=== PATIENT | female | born 1995 | race Caucasian/White ===

== ENCOUNTER 2016-11-09 15:49 | Outpatient (CLI) | payer OTHER | END 2016-11-09 15:50 | disposition home or self-care (01) | LOC: WFO 15:49 | DX: Z53.9 Procedure and treatment not carried out, unspecified reason (principal) ==

== ENCOUNTER 2016-11-25 11:43 | Outpatient (CLI) | payer OTHER ==
[2016-11-25 12:04] VITALS: BP 127/70
--- NOTE | 2016-11-25 14:09 | PROVIDER PROGRESS NOTE ---
Labor Progress Note - Uterine Monitoring Uterine Monitoring Mode: positive: External toco Contraction Frequency (min/apart): 2-5 Contraction Intensity: positive: Mild Uterine Resting Tone: positive: Soft - Monitoring Monitor Mode: positive: External ultrasound Heart Rate Baseline: 135 Heart Rate Variability: positive: Moderate (6-25 bmp) Accelerations: positive: Present, 15x15 Decelerations: positive: None Strip Review: positive: Category I - Vaginal Exam Dilation (in cm): FT Effacement (%): 60 Station: -1 Cervical Position: Midposition - Labor Progress Note Labor Progress Note/Additional Text: S: Susana presents as a diverted patient from [facility] accompanied by her w / a complaint of possible ROM. She reports that she noticed increased vaginal dampness overnight around 2330. She went to the bathroom & then lay down w/ an intent to reassess vaginal d/c x1 hour, but she fell asleep. When she awoke this morning, she was having mild irregular uterine contractions & reported again some increased vaginal wetness. She describes mucoid yellow vaginal d/c the previous day & she reports coitus yesterday prior to thinking her water may have broken. None since & no vaginal penetration or bathing since. Her baby has been moving well. She reports her pain is 4/10 w/ the uterine contractions. Denies vaginal bleeding. No big gushes. O: AAOx3, NAD WA gravid female VS: t: 36.8C, HR 105bpm, RR 18, BP127/72 EFM: BL 135bpm, + accels, no decels, moderate variability TOCO: UCs irregular q2-5 min x40 seconds, palpably mild SSE: negative pool/valsalva/nitrazine/fern SVE: FT/60/-1/anterior/medium A: 21 y/o @ 37w3d by LMP consistent w/ first trimester US w/ irregular but frequent uterine contractions, no LOF, GBS negative, NST cat I & reactive, not in labor P: 1. Reviewed physiology of labor, early labor, progress 2. Reviewed recommendations for diet/hydration 3. Reviewed warning s/sx, s/s LOF, FKC, labor s/sx 4. Pt to keep RTPN visit w/ [facility] next week, intends to transfer care, which she will discuss there & be seen for transfer next week, desires CNM care 5. Pt has emergency contact information & will call w/ any questions or concerns PRN
== END 2016-11-25 13:40 | disposition home or self-care (01) ==
LOC: FBP 11:43 → WFO 11:43
PROVIDERS: ATTEND Registered Nurse
DX: O47.1 False labor at or after 37 completed weeks of gestation (principal); O99.89 Other specified diseases and conditions complicating pregnancy, childbirth and the puerperium; N89.8 Other specified noninflammatory disorders of vagina; Z3A.37 37 weeks gestation of pregnancy
CPT/HCPCS: 99213

== ENCOUNTER 2016-11-29 12:26 | Outpatient (CLI) | payer OTHER ==
[2016-11-29 13:07] LABS: HCT - HEMATOCRIT 38.3 % (37.0-47.0); HGB - HEMOGLOBIN 12.7 g/dL (12.0-16.0); MEAN CORPUSCULAR HEMOGLOBIN 29.5 pg (27.0-31.0); MEAN CORPUSCULAR HGB CONC 33.2 g/dL (32.0-36.0); MEAN CORPUSCULAR VOLUME 88.8 fL (81.0-99.0); MEAN PLATELET VOLUME 10.4 fL (7.9-10.8); RED BLOOD COUNT 4.32 10^6/uL (4.20-5.40); RED CELL DISTRIBUTION WIDTH 14.2 % (12.0-15.0); WHITE BLOOD COUNT 10.5 x10^3/uL (4.8-10.8)
[2016-11-29 13:20] LABS: ALBUMIN/GLOBULIN RATIO 0.8 (1.0-2.2); BILIRUBIN,TOTAL 0.2 mg/dL (0.2-1.0); CALCIUM 9.8 mg/dL (8.5-10.3); CREATININE 0.5 mg/dL (0.4-1.0); POTASSIUM 4.3 mmol/L (3.5-5.0); TOTAL PROTEIN 6.4 g/dL (6.7-8.2)
== END 2016-11-29 12:27 | disposition home or self-care (01) ==
LOC: LAB 12:26
PROVIDERS: ATTEND Registered Nurse
DX: O13.3 Gestational [pregnancy-induced] hypertension without significant proteinuria, third trimester (principal)
CPT/HCPCS: 36415; 80053; 82570; 84156

== ENCOUNTER 2016-12-10 16:37 | Outpatient (CLI) | payer OTHER ==
[2016-12-10 17:01] LABS: HCT - HEMATOCRIT 35.8 % (37.0-47.0); HGB - HEMOGLOBIN 11.8 g/dL (12.0-16.0); MEAN CORPUSCULAR HEMOGLOBIN 29.3 pg (27.0-31.0); MEAN PLATELET VOLUME 8.4 fL (7.9-10.8); RED BLOOD COUNT 4.02 10^6/uL (4.20-5.40); RED CELL DISTRIBUTION WIDTH 14.2 % (12.0-15.0); WHITE BLOOD COUNT 15.9 x10^3/uL (4.8-10.8)
== END 2016-12-10 16:38 | disposition home or self-care (01) ==
LOC: LAB 16:37
PROVIDERS: ATTEND Obstetrics & Gynecology
DX: Z39.2 Encounter for routine postpartum follow-up (principal)
CPT/HCPCS: 36415

== ENCOUNTER 2016-12-24 08:00 | Outpatient (CLI) | payer OTHER | END 2016-12-24 08:01 | disposition home or self-care (01) | LOC: LAB.R 08:00 | PROVIDERS: ATTEND Obstetrics & Gynecology | DX: Z11.3 Encounter for screening for infections with a predominantly sexual mode of transmission (principal) | CPT/HCPCS: 87529 ==

== ENCOUNTER 2016-12-24 11:56 | Outpatient (CLI) | payer OTHER ==
[2016-12-24 12:29] LABS: BASOPHILS # (AUTO) 0.1 10^3/uL (0.0-0.1); EOSINOPHILS # (AUTO) 0.3 10^3/uL (0.0-0.7); EOSINOPHILS % (AUTO) 3.7 %; LYMPHOCYTES # (AUTO) 2.3 10^3/uL (1.5-3.5); MEAN CORPUSCULAR HEMOGLOBIN 28.5 pg (27.0-31.0); MEAN CORPUSCULAR HGB CONC 32.5 g/dL (32.0-36.0); MEAN CORPUSCULAR VOLUME 87.6 fL (81.0-99.0); MEAN PLATELET VOLUME 9.5 fL (7.9-10.8); MONOCYTES # (AUTO) 0.5 10^3/uL (0.0-1.0); MONOCYTES % (AUTO) 6.9 %; NEUTROPHILS # (AUTO) 4.2 10^3/uL (1.5-6.6); NEUTROPHILS % (AUTO) 57.4 %; RED BLOOD COUNT 4.56 10^6/uL (4.20-5.40); RED CELL DISTRIBUTION WIDTH 14.2 % (12.0-15.0); UNCORRECTED WHITE BLOOD COUNT 7.4 x10^3/uL; WHITE BLOOD COUNT 7.4 x10^3/uL (4.8-10.8)
== END 2016-12-24 11:57 | disposition home or self-care (01) ==
LOC: LAB 11:56
PROVIDERS: ATTEND Obstetrics & Gynecology
DX: Z11.3 Encounter for screening for infections with a predominantly sexual mode of transmission (principal)
CPT/HCPCS: 36415; 85025; 86695; 86696

== ENCOUNTER 2017-06-07 13:28 | Emergency (ER) | payer OTHER ==
[2017-06-07] MEDS ORDERED: ONDANSETRON 4 MG/2 ML VIAL IVP STA (13:50)
[2017-06-07] MEDS ORDERED: ACETAMINOPHEN 1,000 MG/100 ML 100 ML IV STA (13:50)
[2017-06-07 13:55] LABS: BILIRUBIN,URINE NEGATIVE (NEGATIVE); GLUCOSE, URINE (UA) NEGATIVE (NEGATIVE); KETONES,URINE (UA) NEGATIVE (NEGATIVE); LEUKOCYTE ESTERASE, URINE NEGATIVE (NEGATIVE); NITRITE,URINE NEGATIVE (NEGATIVE); OCCULT BLOOD,URINE LARGE (NEGATIVE); PROTEIN,URINE NEGATIVE (NEGATIVE); UROBILINOGEN,URINE 0.2 (NORMAL) E.U./dL (NORMAL)
[2017-06-07 13:56] LABS: CLARITY,URINE SL. CLOUDY (CLEAR)
[2017-06-07 14:01] LABS: RBC,URINE TNTC /HPF (0-5); SQUAMOUS EPITHELIAL CELL,UR FEW Squamous (<= Few)
[2017-06-07 14:02] LABS: BACTERIA,URINE Rare /HPF (None Seen)
[2017-06-07 14:04] LABS: BASOPHILS # (AUTO) 0.1 10^3/uL (0.0-0.1); BASOPHILS % (AUTO) 0.6 %; EOSINOPHILS # (AUTO) 0.1 10^3/uL (0.0-0.7); EOSINOPHILS % (AUTO) 1.4 %; HGB - HEMOGLOBIN 13.7 g/dL (12.0-16.0); LYMPHOCYTES # (AUTO) 2.2 10^3/uL (1.5-3.5); LYMPHOCYTES % (AUTO) 23.2 %; MEAN CORPUSCULAR HEMOGLOBIN 28.6 pg (27.0-31.0); MEAN CORPUSCULAR HGB CONC 33.6 g/dL (32.0-36.0); MEAN CORPUSCULAR VOLUME 85.2 fL (81.0-99.0); MEAN PLATELET VOLUME 10.5 fL (7.9-10.8); MONOCYTES # (AUTO) 0.7 10^3/uL (0.0-1.0); MONOCYTES % (AUTO) 7.9 %; NEUTROPHILS # (AUTO) 6.2 10^3/uL (1.5-6.6); NEUTROPHILS % (AUTO) 66.9 %; PLT - PLATELET COUNT 182 10^3/uL (130-450); RED CELL DISTRIBUTION WIDTH 14.9 % (12.0-15.0); WHITE BLOOD COUNT 9.3 x10^3/uL (4.8-10.8)
[2017-06-07 14:17] LABS: ALBUMIN 4.4 g/dL (3.2-5.5); ALBUMIN/GLOBULIN RATIO 1.6 (1.0-2.2); BILIRUBIN,TOTAL 0.8 mg/dL (0.2-1.0); CALCIUM 9.3 mg/dL (8.5-10.3); CREATININE 0.7 mg/dL (0.4-1.0); TOTAL PROTEIN 7.2 g/dL (6.7-8.2)
[2017-06-07 14:26] LABS: HCG UR QUAL NEGATIVE
[2017-06-07 15:48] VITALS: BP 152/102
--- NOTE | 2017-06-07 16:21 | ED Physician Documentation ---
PD HPI ABD PAIN - Stated complaint Stated Complaint: R SIDE ABD PX - Chief complaint Chief Complaint: Abd Pain - History obtained from History obtained from: Patient - History of Present Illness Timing - onset: How many hours ago (1) Timing - details: Still present Quality: Sharp Location: RLQ Associated symptoms: Nausea. No: Vomiting Similar symptoms before: Has not had sx before - Treatment prior to arrival Treatment prior to arrival: Ibuprofen one hour prior to arrival. - Additional information Additional information: The patient is a 21-year-old female who presents with right lower quadrant abdominal pain that started about one hour prior to arrival. She had mild cramping pain this morning, but the sharp pain in her right lower quadrant started one hour ago. She reports associated nausea, but denies vomiting. She denies fever, dysuria, or diarrhea. Her last menstrual period started 2 days ago. She took ibuprofen one hour ago. She last ate about 5 hours ago. Surgical history: Status post . Review of Systems Constitutional: denies: Fever Nose: denies: Congestion Throat: denies: Sore throat Cardiac: denies: Chest pain / pressure Respiratory: denies: Dyspnea, Cough GI: reports: Abdominal Pain, Nausea. denies: Vomiting, Diarrhea : reports: LMP (Started 2 days ago.). denies: Dysuria Skin: denies: Rash Musculoskeletal: denies: Back pain Neurologic: denies: Headache PD PAST MEDICAL HISTORY - Past Medical History Cardiovascular: None Respiratory: None Neuro: None Endocrine/Autoimmune: None GI: None SPA CONSULTANT: None : None HEENT: None Psych: None Musculoskeletal: None Derm: None - Past Surgical History Past Surgical History: Yes General: Other - Present Medications Home Medications: Ambulatory Orders Medication Instructions Recorded Confirmed HYDROcod/ACETAM 5/325 [[place] 5/325] 1 ea PO Q6H PRN #10 tablet 06/07/17 Promethazine [Phenergan] 25 - 50 mg PO Q6H PRN #10 tab 06/07/17 - Allergies Allergies/Adverse Reactions: Allergies Allergy/AdvReac Type Severity Reaction Status Date / Time Penicillins AdvReac Hives Verified 06/07/17 13:35 - Social History Does the pt smoke?: No Smoking Status: Never smoker Does the pt drink ETOH?: No Does the pt have substance abuse?: No - Immunizations Immunizations are current?: Yes - POLST Patient has POLST: No PD ED PE NORMAL - Vitals Vital signs reviewed: Yes (normal) - General General: Alert and oriented X 3, Well developed/nourished - HEENT HEENT: Atraumatic, Moist mucous membranes, Pharynx benign - Neck Neck: Supple, no meningeal sign, No adenopathy - Cardiac Cardiac: RRR, No murmur - Respiratory Respiratory: No respiratory distress, Clear bilaterally - Abdomen Abdomen: Normal bowel sounds, Soft, Non distended, No organomegaly, Other ( There is minimal tenderness to palpation in the right lower quadrant, without rebound tenderness or guarding.) - Back Back: No CVA TTP - Derm Derm: No rash - Neuro Neuro: Alert and oriented X 3, No motor deficit Results - Vitals Vitals: Oxygen O2 Source Room air - Labs Labs: Laboratory Tests 06/07/17 06/07/17 06/07/17 13:00 13:00 13:58 WBC 9.3 RBC 4.80 Hgb 13.7 Hct 40.9 MCV 85.2 MCH 28.6 MCHC 33.6 RDW 14.9 Plt Count 182 MPV 10.5 Neut # 6.2 Lymph # 2.2 [place] # 0.7 Eos # 0.1 Baso # 0.1 Absolute Nucleated RBC 0.00 Nucleated RBC % 0.0 Sodium Potassium Chloride Carbon Dioxide Anion Gap BUN Creatinine Estimated GFR (MDRD) Glucose Calcium Total Bilirubin AST ALT Alkaline Phosphatase Total Protein Albumin Globulin Albumin/Globulin Ratio Lipase Urine Color YELLOW Urine Clarity SL. CLOUDY Urine pH 6.0 Ur Specific [place] 1.025 1.025 Urine Protein NEGATIVE Urine Glucose (UA) NEGATIVE Urine Ketones NEGATIVE Urine Occult Blood LARGE H Urine Nitrite NEGATIVE Urine Bilirubin NEGATIVE Urine Urobilinogen 0.2 (NORMAL) Ur Leukocyte Esterase NEGATIVE Urine RBC TNTC H Urine WBC 0-3 Ur Squamous Epith Cells FEW Squamous Urine Bacteria Rare Ur Microscopic Review INDICATED Urine Culture Comments NOT INDICATED Urine HCG, Qual NEGATIVE 06/07/17 13:58 WBC RBC Hgb Hct MCV MCH MCHC RDW Plt Count MPV Neut # Lymph # [place] # Eos # Baso # Absolute Nucleated RBC Nucleated RBC % Sodium 136 Potassium 3.9 Chloride 105 Carbon Dioxide 25 Anion Gap 6.0 BUN 12 Creatinine 0.7 Estimated GFR (MDRD) 107 Glucose 90 Calcium 9.3 Total Bilirubin 0.8 AST 17 ALT 16 Alkaline Phosphatase 64 Total Protein 7.2 Albumin 4.4 Globulin 2.8 Albumin/Globulin Ratio 1.6 Lipase 17 L Urine Color Urine Clarity Urine pH Ur Specific [place] Urine Protein Urine Glucose (UA) Urine Ketones Urine Occult Blood Urine Nitrite Urine Bilirubin Urine Urobilinogen Ur Leukocyte Esterase Urine RBC Urine WBC Ur Squamous Epith Cells Urine Bacteria Ur Microscopic Review Urine Culture Comments Urine HCG, Qual - Rads (name of study) U/S RLQ Radiology: Prelim report reviewed, EMP read contemporaneously, See rad report ( Nonvisualization of appendix. No secondary findings of acute appendicitis.) Pelvic U/S Radiology: Prelim report reviewed, EMP read contemporaneously, See rad report ( IUD in place. Small amount of free fluid. Otherwise normal.) PD MEDICAL DECISION MAKING - ED course Complexity details: reviewed results, re-evaluated patient, considered differential, d/w patient ED course: The underlying cause of the patient's abdominal pain is uncertain at this time. CBC and chemistry panel are normal. Urinalysis reveals hematuria, consistent with menstrual period, but with no pyuria. Ultrasound of the abdomen and pelvis is negative, with no evidence of appendicitis, ovarian cyst, or torsion. Treatment in the emergency department included administration of Zofran 4 mg IV and acetaminophen 1 g IV. Later ketorolac 30 mg is administered IV. This markedly improved the patient's pain. On reexamination her abdomen is totally benign. The possibility of renal colic is considered. There was no stone detected on ultrasound, but that study would not necessarily detect ureteral stone. The patient is being discharged with prescription for Phenergan and for Vicodin , 10 tablets. I discussed with her and her family the results of her workup, and the possibility that this might be an early presentation of appendicitis that has not yet progressed to the point of revealing diagnostic evidence. I recommended repeat evaluation within 12-24 hours if her symptoms recur or persist, and advised sooner return if she develops worsening symptoms. Departure - Departure Disposition: 01 Home, Self Care Clinical Impression: Abdominal pain Qualifiers: Abdominal location: right lower quadrant Qualified Code(s): R10.31 - Right lower quadrant pain Condition: Stable Instructions: ED Abdominal Pain Unkn Cause Follow-Up: ASHLY REHMAN PA-C [Primary Care Provider] - Prescriptions: HYDROcod/ACETAM 5/325 [[place] 5/325] 1 ea PO Q6H PRN #10 tablet PRN Reason: Pain Promethazine [Phenergan] 25 - 50 mg PO Q6H PRN #10 tab PRN Reason: Nausea / Vomiting Comments: Drink plenty of fluids. You can use Phenergan as prescribed if needed for nausea. You can use ibuprofen, up to 800 mg 3 times daily for its anti-inflammatory effect. You can use Vicodin as prescribed if needed for pain. Follow up with your primary physician within 1 week. Call to schedule appointment. Return to the emergency department if you develop increasing pain or if not starting to improve within the next 12-24 hours. Discharge Date/Time: 06/07/17 17:03
--- NOTE | 2017-06-07 16:24 | Ultrasound Report ---
RIGHT LOWER QUADRANT ULTRASOUND: 06/07/2017 CLINICAL INDICATION: Pain. TECHNIQUE: Real-time scanning was performed with branch sales and service representative static images obtained. FINDINGS: Ultrasound of the right lower quadrant was performed. The appendix is not confidently visualized. No abnormal fluid collection or adenopathy is identified. IMPRESSION: NONVISUALIZATION OF THE APPENDIX, BUT NO SECONDARY FINDINGS OF ACUTE APPENDICITIS ARE APPRECIATED. TD: 06/07/2017 16:23
--- NOTE | 2017-06-07 16:27 | Ultrasound Report ---
PELVIC ULTRASOUND: 06/07/2017 CLINICAL INDICATION: Right-sided pain. TECHNIQUE: Transabdominal pelvic ultrasound performed for global evaluation. Transvaginal pelvic ultrasound performed for detailed evaluation. Real-time scanning performed and static images obtained. FINDINGS: The uterus is anteverted, measuring 7.8 x 5.7 x 4.8 cm. The endometrium measures 10 mm. An IUD is noted in the endometrial canal. The ovaries are normal, with the right measuring 2.8 x 1.6 x 1.2 cm, and the left measuring 2.6 x 1.9 x 1.8 cm. A small amount of free fluid is present in the cul-de-sac. IMPRESSION: SMALL AMOUNT OF FREE FLUID. IUD IN THE ENDOMETRIAL CANAL. NORMAL OVARIES. TD: 06/07/2017 16:26
[2017-06-07] MEDS ORDERED: KETOROLAC 60 MG/2 ML VIAL IVP STA (16:32)
== END 2017-06-07 17:03 | disposition home or self-care (01) ==
LOC: ED 13:28
DX: R10.31 Right lower quadrant pain (principal)
CPT/HCPCS: 36415; 76705; 76830; 76856; 80053; 81001; 81025; 83690; 85025; 96365; 96375; 99283; 99284; J0131; 81003; 87086

== ENCOUNTER 2017-06-13 08:05 | Outpatient (CLI) | payer OTHER ==
--- NOTE | 2017-06-13 18:48 | MRI Report ---
REVISED: REPORT ORIGINALLY SIGNED ON 06/13/2017@1848; ORDERS LINKED ON 2017 jll EXAM: BILATERAL CALF/TIBIA MRI WITHOUT CONTRAST EXAM DATE: 06/13/2017 10:11 AM. CLINICAL HISTORY: Pain in right and left leg. Bilateral tran pain for 3 weeks. Pain worse with running. COMPARISON: None. TECHNIQUE: Multiplanar, multisequence T1-weighted and fluid-sensitive sequences of the calf/tibia without contrast. Other: None. FINDINGS Bones: Edema is noted at the posterior aspect proximal medial left tibial plateau. Mild marrow edema left mid medial femoral condyle axial T2-weighted fat saturation sequence. There is mild marrow edema posterior aspect medial proximal tibia epiphysis right leg (image 4 series [id number]). Joint Spaces: Visualized portions of the ankle and knee joints are unremarkable. Tendons: Where visualized, the Achilles and plantaris tendons are intact. Musculature: No edema or fatty atrophy. Other: The subcutaneous tissues are unremarkable. IMPRESSION 1. Negative for tibia shaft stress injury. 2. Mild marrow edema or bone bruise posterior aspect medial left and right tibia epiphysis, which is greater on the left than the right. 3. Negative for soft tissue or bone signal abnormality medial aspect proximal to mid legs bilaterally at the level of the skin markers. [facility]CULOS[facility] Referring Provider Line: [phone] SITE ID: [id number]
== END 2017-06-13 08:06 | disposition home or self-care (01) ==
LOC: DI 08:05
PROVIDERS: ATTEND Physician Assistant Medical
DX: M79.662 Pain in left lower leg (principal); M79.661 Pain in right lower leg

== ENCOUNTER 2017-07-16 18:55 | Outpatient (CLI) | payer OTHER | END 2017-07-16 18:56 | disposition EMS.NT | LOC: EMS 18:55 | PROVIDERS: ATTEND Surgery | DX: N92.0 Excessive and frequent menstruation with regular cycle (principal) ==

== ENCOUNTER 2017-07-16 19:41 | Emergency (ER) | payer OTHER ==
--- NOTE | 2017-07-16 20:19 | ED Physician Documentation ---
PD HPI FEMALE - Stated complaint Stated Complaint: ABD CRAMPING - Chief complaint Chief Complaint: Abd Pain - History obtained from History obtained from: Patient - History of Present Illness Timing - onset: Today Timing - details: Gradual onset, Still present Associated symptoms: Pelvic pain, Vaginal bleeding Similar symptoms before: Has not had sx before Recently seen: Not recently seen - Additional information Additional information: Patient is a 21 year old female with no significant past medical history who is presenting to the emergency department for pelvic pain and vaginal bleeding. Patient states that she normally gets her period every month on the . Patient states that it started a few days late. Patient states that starting yesterday she has had severe pain with her vaginal bleeding. Review of Systems Constitutional: denies: Fever, Chills Eyes: reports: Reviewed and negative Ears: reports: Reviewed and negative Throat: reports: Reviewed and negative GI: reports: Abdominal Pain. denies: Nausea, Vomiting : reports: Vaginal bleeding. 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: None : None HEENT: None Psych: None Musculoskeletal: None Derm: None - Past Surgical History Past Surgical History: Yes General: Other /REGISTERED DENTAL HYGIENIST: section HEENT: Tonsil/Adenoidectomy - Present Medications Home Medications: Ambulatory Orders Medication Instructions Recorded Confirmed HYDROcod/ACETAM 5/325 [[place] 5/325] 1 ea PO Q6H PRN #10 tablet 06/07/17 Promethazine [Phenergan] 25 - 50 mg PO Q6H PRN #10 tab 06/07/17 - Allergies Allergies/Adverse Reactions: Allergies Allergy/AdvReac Type Severity Reaction Status Date / Time Penicillins AdvReac Hives Verified 07/16/17 19:47 - Social History Does the pt smoke?: No Smoking Status: Never smoker Does the pt drink ETOH?: No Does the pt have substance abuse?: No - Immunizations Immunizations are current?: Yes - POLST Patient has POLST: No PD ED PE NORMAL - Vitals Vital signs reviewed: Yes - General General: Alert and oriented X 3, Well developed/nourished - HEENT HEENT: Atraumatic, PERRL - Neck Neck: Supple, no meningeal sign - Cardiac Cardiac: RRR, No murmur - Respiratory Respiratory: No respiratory distress - Abdomen Abdomen: Soft, Non distended - Female Female : Deferred - Derm Derm: Normal color, Warm and dry - Extremities Extremities: No deformity - Neuro Neuro: Alert and oriented X 3 Eye Opening: Spontaneous Motor: Obeys Commands Verbal: Oriented GCS Score: 15 Results - Vitals Vitals: Vital Signs - 24 hr 07/16/17 07/16/17 19:42 22:00 Temperature 36.4 C L Heart Rate 73 60 Respiratory 16 16 Rate Blood Pressure 129/79 122/71 O2 Saturation 100 99 Oxygen O2 Source Room air - Labs Labs: Laboratory Tests 07/16/17 07/16/17 07/16/17 20:10 20:26 20:26 WBC 9.9 RBC 4.73 Hgb 13.3 Hct 40.9 MCV 86.6 MCH 28.0 MCHC 32.4 RDW 14.0 Plt Count 195 MPV 10.8 Neut # 7.0 H Lymph # 1.9 [place] # 0.8 Eos # 0.2 Baso # 0.1 Absolute Nucleated RBC 0.01 Nucleated RBC % 0.1 Sodium 139 Potassium 4.1 Chloride 103 Carbon Dioxide 28 Anion Gap 8.0 BUN 12 Creatinine 0.7 Estimated GFR (MDRD) 107 Glucose 92 Calcium 9.1 Total Bilirubin 0.6 AST 19 ALT 15 Alkaline Phosphatase 60 Total Protein 6.9 Albumin 3.9 Globulin 3.0 Albumin/Globulin Ratio 1.3 Lipase 23 HCG, Quant Urine Color RED/BLOODY Urine Clarity HAZY Urine pH 7.0 Ur Specific [place] 1.015 Urine Protein NEGATIVE Urine Glucose (UA) NEGATIVE Urine Ketones NEGATIVE Urine Occult Blood LARGE H Urine Nitrite NEGATIVE Urine Bilirubin NEGATIVE Urine Urobilinogen 0.2 (NORMAL) Ur Leukocyte Esterase TRACE H Urine RBC TNTC H Urine WBC >25 H Ur Squamous Epith Cells FEW Squamous Urine Bacteria Few Ur Microscopic Review INDICATED Urine Culture Comments INDICATED Urine HCG, Qual NEGATIVE 07/16/17 20:26 WBC RBC Hgb Hct MCV MCH MCHC RDW Plt Count MPV Neut # Lymph # [place] # Eos # Baso # Absolute Nucleated RBC Nucleated RBC % Sodium Potassium Chloride Carbon Dioxide Anion Gap BUN Creatinine Estimated GFR (MDRD) Glucose Calcium Total Bilirubin AST ALT Alkaline Phosphatase Total Protein Albumin Globulin Albumin/Globulin Ratio Lipase HCG, Quant < 0.60 Urine Color Urine Clarity Urine pH Ur Specific [place] Urine Protein Urine Glucose (UA) Urine Ketones Urine Occult Blood Urine Nitrite Urine Bilirubin Urine Urobilinogen Ur Leukocyte Esterase Urine RBC Urine WBC Ur Squamous Epith Cells Urine Bacteria Ur Microscopic Review Urine Culture Comments Urine HCG, Qual - Rads (name of study) pelvic ultrasound Radiology: Final report received (no acute abnormalities) PD MEDICAL DECISION MAKING - ED course Complexity details: reviewed old records, reviewed results, re-evaluated patient , considered differential, d/w patient, d/w family ED course: Patient was seen and examined at bedside. Urine was collected and patient was not . IV access was gained and labs were drawn. Patient was treated with toradol for pain and imaging was ordered. When patient returned from imaging she reported that the pelvic cramping had resolved but she had a mild headache. Patient was treated with tylenol for her headache. Patients diagnostics were within normal limits. patient required no further work up and was stable for discharge with outpatient follow up. Departure - Departure Disposition: 01 Home, Self Care Clinical Impression: Dysmenorrhea Condition: Good Instructions: ED Cramping Menstrual Follow-Up: primary,care provider [Other] - Within 3 Days Comments: Your diagnostics today were within normal limits. there were no major abnormalities and your symptoms are likely secondary to your menstrual cycle. You should follow up with your ob and consider changing your control. You can take motrin or tylenol as needed for pain. You may return to the emergency department at any time for new, worsening or uncontrollable symptoms.
[2017-07-16 20:26] LABS: BILIRUBIN,URINE NEGATIVE (NEGATIVE); GLUCOSE, URINE (UA) NEGATIVE (NEGATIVE); KETONES,URINE (UA) NEGATIVE (NEGATIVE); LEUKOCYTE ESTERASE, URINE TRACE (NEGATIVE); NITRITE,URINE NEGATIVE (NEGATIVE); OCCULT BLOOD,URINE LARGE (NEGATIVE); PROTEIN,URINE NEGATIVE (NEGATIVE); UROBILINOGEN,URINE 0.2 (NORMAL) E.U./dL (NORMAL)
[2017-07-16 20:48] LABS: HCG UR QUAL NEGATIVE
[2017-07-16 20:49] LABS: CLARITY,URINE HAZY (CLEAR)
[2017-07-16] MEDS ORDERED: KETOROLAC 60 MG/2 ML VIAL IVP STA (20:49)
[2017-07-16 20:54] LABS: BASOPHILS # (AUTO) 0.1 10^3/uL (0.0-0.1); BASOPHILS % (AUTO) 0.6 %; EOSINOPHILS # (AUTO) 0.2 10^3/uL (0.0-0.7); HGB - HEMOGLOBIN 13.3 g/dL (12.0-16.0); LYMPHOCYTES # (AUTO) 1.9 10^3/uL (1.5-3.5); LYMPHOCYTES % (AUTO) 19.6 %; MEAN CORPUSCULAR HGB CONC 32.4 g/dL (32.0-36.0); MEAN CORPUSCULAR VOLUME 86.6 fL (81.0-99.0); MEAN PLATELET VOLUME 10.8 fL (7.9-10.8); MONOCYTES # (AUTO) 0.8 10^3/uL (0.0-1.0); MONOCYTES % (AUTO) 7.6 %; NEUTROPHILS % (AUTO) 70.2 %; PLT - PLATELET COUNT 195 10^3/uL (130-450); RED BLOOD COUNT 4.73 10^6/uL (4.20-5.40); WHITE BLOOD COUNT 9.9 x10^3/uL (4.8-10.8)
[2017-07-16 20:59] LABS: BACTERIA,URINE Few /HPF (None Seen); RBC,URINE TNTC /HPF (0-5); SQUAMOUS EPITHELIAL CELL,UR FEW Squamous (<= Few)
[2017-07-16 21:08] LABS: ALBUMIN 3.9 g/dL (3.2-5.5); ALBUMIN/GLOBULIN RATIO 1.3 (1.0-2.2); BILIRUBIN,TOTAL 0.6 mg/dL (0.2-1.0); CALCIUM 9.1 mg/dL (8.5-10.3); CREATININE 0.7 mg/dL (0.4-1.0); TOTAL PROTEIN 6.9 g/dL (6.7-8.2)
--- NOTE | 2017-07-16 21:49 | Ultrasound Preliminary Report ---
Exam: US PELVIC W/TRANSVAG+DOPPLER COMP IMPRESSION: 1. IUD. 2. No ovarian torsion. 3. Otherwise unremarkable exam. [facility] SITE ID: [id number]
[2017-07-16] MEDS ORDERED: ACETAMINOPHEN 500 MG TABLET PO STA (21:51)
--- NOTE | 2017-07-16 21:55 | Ultrasound Report ---
EXAM: PELVIC ULTRASOUND EXAM DATE: 07/16/2017 09:30 PM. CLINICAL HISTORY: Pelvic pain, vag bleeding. LMP 06/05/2017. . COMPARISON: 06/07/2017. TECHNIQUE: Realtime transabdominal pelvic scan performed to identify the uterus and adnexa and as an overview of other pelvic structures, followed by transvaginal scan to provide greater detail of the u terus and adnexa, with static image documentation. FINDINGS: Uterus: 8.6 x 4.3 x 5.4 cm, volume 104 cc. Anteverted position. Normal overall size and echotexture. Masses: None. Endometrium: 5.3 mm. IUD remains in place. Otherwise unremarkable. Cervix: Unremarkable. Right Ovary: 3.5 x 1.9 x 1.8 cm, volume 6.3 cc. Normal echotexture and blood flow. Left Ovary: 2.2 x 2.4 x 1.9 cm, volume 5.5 cc. Normal echotexture and blood flow. Free Fluid: None. Other: None. IMPRESSION: 1. IUD. 2. No ovarian torsion. 3. Otherwise unremarkable exam. [facility] Referring Provider Line: [phone] SITE ID: [id number]
[2017-07-16 22:01] VITALS: BP 122/71
== END 2017-07-16 22:15 | disposition home or self-care (01) ==
LOC: EDUNIT# → ED 19:41
DX: N94.6 Dysmenorrhea, unspecified (principal); R51 Headache
CPT/HCPCS: 36415; 76830; 76856; 80053; 81001; 81025; 83690; 84702; 85025; 87086; 93975; 96374; 99283; 99284; A9270; 81003

== ENCOUNTER 2018-06-11 09:16 | Emergency (ER) | payer OTHER ==
[2018-06-11 09:25] VITALS: BP 130/77
[2018-06-11] MEDS ORDERED: DEXAMETHASONE 10 MG/ML VIAL PO STA (09:52)
--- NOTE | 2018-06-11 09:54 | ED Physician Documentation ---
PD HPI HEENT - Stated complaint Stated Complaint: SORE THROAT/FEVER/EAR PAIN - Chief complaint Chief Complaint: Heent - History obtained from History obtained from: Patient - History of Present Illness Timing - onset: Yesterday Timing - duration: Days (1) Timing - details: Gradual onset, Still present Location: Right ear, Left ear, Throat Improves: Medication Worsens: Swalllowing Associated symptoms: Fever, Congestion, Headache. No: Cough Similar symptoms before: Has not had sx before Recently seen: Not recently seen - Additional information Additional information: 22-year-old female with a sore throat developing yesterday has developed fever as well she has not had any cough she is allergic to penicillin. Review of Systems Constitutional: reports: Fever, Chills, Myalgias Eyes: denies: Decreased vision Ears: reports: Ear pain Nose: reports: Rhinorrhea / runny nose, Congestion Throat: reports: Sore throat Cardiac: denies: Chest pain / pressure, Palpitations Respiratory: denies: Dyspnea, Cough GI: denies: Abdominal Pain, Nausea, Vomiting : denies: Dysuria, Frequency Musculoskeletal: denies: Neck pain, Back pain, Extremity pain Neurologic: reports: Headache. 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 HEENT: Tonsil/Adenoidectomy - Present Medications Home Medications: Ambulatory Orders Medication Instructions Recorded Confirmed HYDROcod/ACETAM 5/325 [[place] 5/325] 1 ea PO Q6H PRN #10 tablet 06/07/17 Promethazine [Phenergan] 25 - 50 mg PO Q6H PRN #10 tab 06/07/17 Azithromycin [Zithromax] 250 mg PO DAILY #6 tablet 06/11/18 - Allergies Allergies/Adverse Reactions: Allergies Allergy/AdvReac Type Severity Reaction Status Date / Time Penicillins AdvReac Hives Verified 06/11/18 09:25 - Social History Does the pt smoke?: No Smoking Status: Never smoker Does the pt drink ETOH?: No Does the pt have substance abuse?: No - Immunizations Immunizations are current?: Yes - POLST Patient has POLST: No PD ED PE NORMAL - Vitals Vital signs reviewed: Yes (normal ) - General General: Alert and oriented X 3, No acute distress, Well developed/nourished - HEENT HEENT: Atraumatic, PERRL, EOMI, Ears normal, Other (The pharynx is generally erythematous with patchy swelling. ) - Neck Neck: Supple, no meningeal sign, No bony TTP - Cardiac Cardiac: RRR, No murmur - Respiratory Respiratory: No respiratory distress, Clear bilaterally - Abdomen Abdomen: Soft, Non tender - Back Back: No CVA TTP, No spinal TTP - Derm Derm: Normal color, Warm and dry, No rash - Extremities Extremities: No deformity, No edema - Neuro Neuro: Alert and oriented X 3, disability advocate 2-12 intact, No motor deficit, No sensory deficit, Normal speech Eye Opening: Spontaneous Motor: Obeys Commands Verbal: Oriented GCS Score: 15 - Psych Psych: Normal mood, Normal affect Results - Vitals Vitals: Vital Signs - 24 hr 06/11/18 09:23 Temperature 36.6 C Heart Rate 88 Respiratory 17 Rate Blood Pressure 130/77 O2 Saturation 95 Oxygen O2 Source Room air - Labs Labs: Laboratory Tests 06/11/18 09:29 Group A Strep Rapid POSITIVE H PD MEDICAL DECISION MAKING - ED course Complexity details: considered differential, d/w patient ED course: 22-year-old female with strep pharyngitis is administered dexamethasone 10 mg orally we will place her on some azithromycin as she is allergic to penicillin and will take her off work for 2 days. Departure - Departure Disposition: 01 Home, Self Care Clinical Impression: Strep pharyngitis Condition: Stable Instructions: ED Strep Pharyngitis Conf Follow-Up: Ofe Soriano MD [Primary Care Provider] - Prescriptions: Azithromycin [Zithromax] 250 mg PO DAILY #6 tablet Forms: Activity restrictions
== END 2018-06-11 10:01 | disposition home or self-care (01) ==
LOC: ED 09:16
DX: J02.0 Streptococcal pharyngitis (principal)
CPT/HCPCS: 87430; 99283

== ENCOUNTER 2020-02-11 22:51 | Emergency (ER) | payer OTHER ==
[2020-02-11 23:05] LABS: BILIRUBIN,URINE NEGATIVE (NEGATIVE); GLUCOSE, URINE (UA) NEGATIVE (NEGATIVE); KETONES,URINE (UA) NEGATIVE (NEGATIVE); LEUKOCYTE ESTERASE, URINE NEGATIVE (NEGATIVE); NITRITE,URINE NEGATIVE (NEGATIVE); OCCULT BLOOD,URINE NEGATIVE (NEGATIVE); PROTEIN,URINE NEGATIVE (NEGATIVE); UROBILINOGEN,URINE 0.2 (NORMAL) E.U./dL (NORMAL)
[2020-02-11 23:06] LABS: CLARITY,URINE CLEAR (CLEAR)
[2020-02-11 23:08] LABS: HCG UR QUAL NEGATIVE
[2020-02-11 23:48] LABS: BASOPHILS % (AUTO) 0.6 %; EOSINOPHILS % (AUTO) 0.6 %; HGB - HEMOGLOBIN 14.6 g/dL (12.0-16.0); LYMPHOCYTES # (AUTO) 1.9 10^3/uL (1.5-3.5); LYMPHOCYTES % (AUTO) 25.8 %; MEAN CORPUSCULAR HEMOGLOBIN 29.9 pg (27.0-31.0); MEAN CORPUSCULAR VOLUME 90.6 fL (81.0-99.0); MEAN PLATELET VOLUME 12.5 fL (7.9-10.8); MONOCYTES # (AUTO) 0.6 10^3/uL (0.0-1.0); NEUTROPHILS # (AUTO) 4.7 10^3/uL (1.5-6.6); NEUTROPHILS % (AUTO) 64.7 %; PLT - PLATELET COUNT 194 10^3/uL (130-450); RED BLOOD COUNT 4.89 10^6/uL (4.20-5.40); RED CELL DISTRIBUTION WIDTH 12.2 % (12.0-15.0); WHITE BLOOD COUNT 7.2 x10^3/uL (4.8-10.8)
[2020-02-12 00:02] LABS: ALBUMIN 4.3 g/dL (3.2-5.5); ALBUMIN/GLOBULIN RATIO 1.5 (1.0-2.2); BILIRUBIN,TOTAL 0.6 mg/dL (0.2-1.0); CALCIUM 9.8 mg/dL (8.5-10.3); CREATININE 0.9 mg/dL (0.4-1.0); TOTAL PROTEIN 7.2 g/dL (6.7-8.2)
--- NOTE | 2020-02-12 00:03 | ED Physician Documentation ---
PD HPI ABD PAIN - Stated complaint Stated Complaint: RT FLANK PX - Chief complaint Chief Complaint: Back Pain - History obtained from History obtained from: Patient - History of Present Illness Timing - onset: Today Timing - duration: Hours Timing - details: Abrupt onset, Still present Quality: Sharp, Pain Location: RUQ, RLQ Radiation: Right flank Improved by: Laying still Worsened by: Moving, Breathing, Position, Palpation Associated symptoms: Nausea Similar symptoms before: No diagnosis Recently seen: Not recently seen - Additional information Additional information: Previously well 24-year-old female who is under a lot of stress has developed acute right-sided abdominal pain at rest today. She states that it is sharp and stabbing in nature and involves the entire right side she is having some difficulty localizing the pain. It does hurt more to walk it hurts more to stand up and hurts to go over bumps in the car. She is feeling that she has had some urinary frequency as well as some nausea. Review of Systems Constitutional: denies: Fever, Myalgias, Fatigue Eyes: denies: Decreased vision Ears: denies: Ear pain Nose: denies: Rhinorrhea / runny nose, Congestion Throat: denies: Sore throat Cardiac: denies: Chest pain / pressure, Palpitations Respiratory: denies: Dyspnea, Cough GI: reports: Abdominal Pain, Nausea. denies: Vomiting, Constipation, Diarrhea : reports: Frequency. 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 HEENT: Tonsil/Adenoidectomy - Allergies Allergies/Adverse Reactions: Allergies Allergy/AdvReac Type Severity Reaction Status Date / Time Penicillins AdvReac Hives Verified 02/11/20 23:00 - Social History Does the pt smoke?: No Smoking Status: Never smoker Does the pt drink ETOH?: No Does the pt have substance abuse?: No - Immunizations Immunizations are current?: Yes - POLST Patient has POLST: No PD ED PE NORMAL - Vitals Vital signs reviewed: Yes (Tachycardic and hypertensive) - General General: Alert and oriented X 3, No acute distress, Well developed/nourished - HEENT HEENT: Atraumatic, PERRL, EOMI - Neck Neck: Supple, no meningeal sign, No bony TTP - Cardiac Cardiac: RRR, No murmur - Respiratory Respiratory: No respiratory distress, Clear bilaterally - Abdomen Abdomen: Normal bowel sounds, Soft, Non distended, No organomegaly, Other (There is some tenderness to the right side and general more in the right lower quadrant in the right upper quadrant there is not pain to bimanual palpation of the right kidney.) - Back Back: No CVA TTP, No spinal TTP - Derm Derm: Normal color, Warm and dry, No rash - Extremities Extremities: No deformity, No edema - Neuro Neuro: Alert and oriented X 3, aircraft pilot 2-12 intact, No motor deficit, No sensory deficit, Normal speech Eye Opening: Spontaneous Motor: Obeys Commands Verbal: Oriented GCS Score: 15 - Psych Psych: Normal mood, Normal affect Results - Vitals Vitals: Vital Signs - 24 hr 02/11/20 02/11/20 02/11/20 22:58 23:04 23:50 Temperature 36.9 C 36.9 C 36.9 C Heart Rate 104 H 104 H 98 Respiratory 19 19 18 Rate Blood Pressure 153/106 H 153/106 H 142/89 H O2 Saturation 96 99 100 Oxygen O2 Source Room air - Labs Labs: Laboratory Tests 02/11/20 02/11/20 02/11/20 23:00 23:00 23:40 WBC 7.2 RBC 4.89 Hgb 14.6 Hct 44.3 MCV 90.6 MCH 29.9 MCHC 33.0 RDW 12.2 Plt Count 194 MPV 12.5 H Neut # (Auto) 4.7 Lymph # (Auto) 1.9 Ellis # (Auto) 0.6 Eos # (Auto) 0.0 Baso # (Auto) 0.0 Absolute Nucleated RBC 0.00 Nucleated RBC % 0.0 Sodium Potassium Chloride Carbon Dioxide Anion Gap BUN Creatinine Estimated GFR (MDRD) Glucose Calcium Total Bilirubin AST ALT Alkaline Phosphatase Total Protein Albumin Globulin Albumin/Globulin Ratio Lipase Urine Color YELLOW Urine Clarity CLEAR Urine pH 6.0 Ur Specific [place] <=1.005 Urine Protein NEGATIVE Urine Glucose (UA) NEGATIVE Urine Ketones NEGATIVE Urine Occult Blood NEGATIVE Urine Nitrite NEGATIVE Urine Bilirubin NEGATIVE Urine Urobilinogen 0.2 (NORMAL) Ur Leukocyte Esterase NEGATIVE Ur Microscopic Review NOT INDICATED Urine Culture Comments NOT INDICATED Urine HCG, Qual NEGATIVE 02/11/20 23:40 WBC RBC Hgb Hct MCV MCH MCHC RDW Plt Count MPV Neut # (Auto) Lymph # (Auto) Ellis # (Auto) Eos # (Auto) Baso # (Auto) Absolute Nucleated RBC Nucleated RBC % Sodium 140 Potassium 3.6 Chloride 105 Carbon Dioxide 25 Anion Gap 10.0 BUN 10 Creatinine 0.9 Estimated GFR (MDRD) 78 L Glucose 125 H Calcium 9.8 Total Bilirubin 0.6 AST 16 ALT 17 Alkaline Phosphatase 45 Total Protein 7.2 Albumin 4.3 Globulin 2.9 Albumin/Globulin Ratio 1.5 Lipase 28 Urine Color Urine Clarity Urine pH Ur Specific [place] Urine Protein Urine Glucose (UA) Urine Ketones Urine Occult Blood Urine Nitrite Urine Bilirubin Urine Urobilinogen Ur Leukocyte Esterase Ur Microscopic Review Urine Culture Comments Urine HCG, Qual - Rads (name of study) CT abdomen and pelvis without Radiology: Prelim report reviewed (Impression: No renal/ureteral stones or hydronephrosis. No calcified gallstones. Normal appendix. Fecal retention. Left adnexal cyst, likely ovarian.), EMP read indepedently, See rad report Procedures - Bedside sono Bedside sono by EMP: With his bedside ultrasound the right kidney is imaged, it is sonographically no ntender and there is no evidence of hydronephrosis. There is no perirenal fluid collection. Exam of the right upper quadrant shows a sonographically nontender gallbladder without evidence of stone or wall thickening or pericholecystic fluid. PD MEDICAL DECISION MAKING - ED course Complexity details: reviewed old records, reviewed results, re-evaluated patient, considered differential, d/w patient ED course: 24-year-old female with acute right-sided abdominal pain has negative findings on bedside ultrasound for the gallbladder or kidney and she has some tenderness more on the right lower quadrant and a CT scan of the abdomen pelvis is undertaken to rule out appendicitis. She has normal blood work and normal- appearing appendix on CT scan. She does have a significant stool load on the right side and I suspect this is the reason for her pain. She does acknowledge that her pain has come and gone. She is administered a dose of milk of magnesia to take at home. The expectation is complete recovery. Departure - Departure Disposition: 01 Home, Self Care Clinical Impression: Constipation Qualifiers: Constipation type: unspecified constipation type Qualified Code(s): K59.00 - Constipation, unspecified Condition: Stable Instructions: ED Constipation Follow-Up: Ofe Soriano MD [Primary Care Provider] - Comments: Today it appears that the cause of your right-sided abdominal pain is a significant stool load on the right side and the recommendation is to take some milk of magnesia and the expectation is that this resolves your symptoms. If have persistence of symptoms return to the emergency department or follow-up with your regular doctor.
[2020-02-12] MEDS ORDERED: MAGNESIUM HYDROXIDE 2,400 MG/30 ML UDC PO STA (00:52)
[2020-02-12 01:01] VITALS: BP 138/80
--- NOTE | 2020-02-12 08:23 | CT Report ---
PROCEDURE: Abdomen/Pelvis WO INDICATIONS: RLQ pain TECHNIQUE: Noncontrast 5 mm thick sections acquired from the diaphragms to the symphysis. 5 mm coronal and sagi ttal reformats were then performed. For radiation dose reduction, the following was used: automated exposure control, adjustment of mA and/or kV according to patient size. COMPARISON: Pelvic ultrasound 07/16/2017.. FINDINGS: Image quality: Excellent. ABDOMEN: Lung bases: Lung bases are clear. Heart size is normal. Solid organs: Liver and spleen are normal in size. Gallbladder is unremarkable. Pancreas is normal in contours. No adrenal nodules. Kidneys are normal in size, without hydronephrosis or nephrolithi asis. Peritoneum and bowel: Prominent food residue in the stomach. Unenhanced bowel loops demonstrate norm al wall thickness and caliber. Mildly prominent stool in the right colon. Normal appendix with air in its lumen. Nondilated. No free fluid or air. Nodes and vessels: No retroperitoneal or mesenteric adenopathy by size criteria. Aorta and inferior vena cava are normal in caliber. Miscellaneous: No significant ventral hernias. PELVIS: Genitourinary: Bladder is unremarkable. Anteverted uterus. Small left ovarian cyst. Small volume of free fluid in the pelvis. Miscellaneous: No inguinal hernias or adenopathy. Bones: No suspicious bony lesions. No vertebral body compression fractures. IMPRESSION: 1. Normal appearance of the appendix. 2. No kidney stones or hydronephrosis. 3. Small left ovarian cyst. Small volume of free fluid in the pelvis likely physiologic. -If clinically indicated pelvic ultrasound could be performed. This report is concordant with the overnight preliminary report. Reviewed by: Angel Zhao MD on 02/12/2020 8:21 AM [facility] Approved by: Angel Zhao MD on 02/12/2020 8:21 AM [facility] Station ID: [id number]
== END 2020-02-12 01:00 | disposition home or self-care (01) ==
LOC: ED 22:51
DX: K59.00 Constipation, unspecified (principal); N83.202 Unspecified ovarian cyst, left side
CPT/HCPCS: 36415; 74176; 80053; 81003; 81025; 83690; 85025; 99284; A9270; 81001; 87086